=== PATIENT | female | born 1990 | race Caucasian/White ===

== ENCOUNTER → 2017-05-19 | Outpatient (CLI) | payer OTHER ==
[~2017-05-19] MED LIST: ERGO1CAP30 PO; PROP20TA3 PO
[2017-05-19 10:13] LABS: AUTOMATED NEUTROPHIL # 5.1 TH/MM3 (1.8-7.7); BASOPHIL # 0.1 TH/MM3 (0-0.2); BASOPHIL % 0.9 % (0.0-2.0); EOSINOPHIL # 0.1 TH/MM3 (0-0.4); EOSINOPHIL % 1.6 % (0.0-4.0); HEMATOCRIT 41.5 % (35.0-46.0); HEMO FLAGS DIFF FINAL; LYMPH % 35.4 % (9.0-44.0); LYMPHOCYTE # 3.3 TH/MM3 (1.0-4.8); MEAN CELL VOLUME 82.4 FL (80.0-100.0); MEAN CORPUSCULAR HEMOGLOBIN 28.4 PG (27.0-34.0); MEAN CORPUSCULAR HGB CONC 34.4 % (32.0-36.0); MONO % 7.5 % (0.0-8.0); NEUT % 54.6 % (16.0-70.0); PLATELET COUNT 272 TH/MM3 (150-450); RED BLOOD COUNT 5.04 MIL/MM3 (4.00-5.30); RED CELL DISTRIBUTION WIDTH 12.8 % (11.6-17.2); WHITE BLOOD COUNT 9.3 TH/MM3 (4.0-11.0)
[2017-05-19 10:21] LABS: BLOOD, URINE TRACE (NEG); COMMENT (UR) CULT NOT INDICATED; CULTURE IF INDICATED CULT NOT INDICATED; GLUCOSE,URINE NEG (NEG); KETONE, URINE NEG (NEG); MUCUS URINE FEW /lpf (OCC); NITRITE,URINE NEG (NEG); PH, URINE 5.5 (5.0-8.5); SQUAMOUS EPITHELIAL CELL URINE 26 /hpf (0-5); URINE COLOR YELLOW (YELLW/STRAW)
[2017-05-19 10:30] LABS: ANION GAP 5 MEQ/L (5-15); BICARBONATE 25.6 MEQ/L (21.0-32.0); BLOOD UREA NITROGEN 14 MG/DL (7-18); CHLORIDE 109 MEQ/L (98-107); GLUCOSE,FASTING 94 MG/DL (74-99); MAGNESIUM 1.8 MG/DL (1.5-2.5); POTASSIUM 4.1 MEQ/L (3.5-5.1); SODIUM (NA) 140 MEQ/L (136-145)
[2017-05-19 11:07] LABS: ALKALINE PHOSPHATASE 93 U/L (45-117); ALT (GPT) 44 U/L (10-53); AST (GOT) 18 U/L (15-37); FERRITIN 22 NG/ML (8-252); FREE T3 2.48 PG/ML (2.18-3.98); FREE T4 0.74 NG/DL (0.76-1.46); GLOMERULAR FILTRATION RATE 80 ML/MIN (>89); HDL CHOLESTEROL 37.9 MG/DL (40.0-60.0); LDL CHOLESTEROL 88 MG/DL (0-99); TOTAL BILIRUBIN ADULT 0.4 MG/DL (0.2-1.0); TRANSFERRIN IRON PROFILE 302 MG/DL (200-360)
== END ==
LOC: CLAB 09:19
PROVIDERS: ATTEND Nurse Practitioner
DX: R53.83 Other fatigue (principal); R12 Heartburn; E66.01 Morbid (severe) obesity due to excess calories
CPT/HCPCS: 36415; 80053; 80061; 81001; 82306; 82607; 82728; 82746; 83540; 83550; 83735; 83970; 84100; 84439; 84443; 84481; 84590; 85025; 87338

== ENCOUNTER → 2017-06-06 | Outpatient (CLI) | payer OTHER ==
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
== END ==
LOC: HRAD 13:34
PROVIDERS: ATTEND Surgery
DX: R53.83 Other fatigue (principal); R12 Heartburn; E66.01 Morbid (severe) obesity due to excess calories
CPT/HCPCS: 71020

== ENCOUNTER → 2017-06-26 | Outpatient (CLI) | payer OTHER ==
[~2017-06-26] MED LIST changes: +NAPR500 PO; -PROP20TA3 PO; +TOPI1TAB97 PO
== END ==
LOC: CLAB 12:15
PROVIDERS: ATTEND Family Medicine
DX: Z84.0 Family history of diseases of the skin and subcutaneous tissue (principal)
CPT/HCPCS: 36415; 85652; 86038

== ENCOUNTER 2017-07-10 08:45 | Emergency (ER) | payer OTHER ==
[~2017-07-10] VITALS: Ht 165.1 cm; Wt 100.0 kg
[2017-07-10 08:49] VITALS: BP 137/83; PULSE 86; RESP 20; TEMP 98.7; O2SAT 96
[2017-07-10] MEDS ORDERED: IBUPROFEN 600 MG TAB PO ONE (09:45)
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
[2017-07-10 11:20] VITALS: BP 142/72; PULSE 76; RESP 16; O2SAT 97
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
[2017-07-10 13:30] VITALS: BP 141/75
[2017-07-28] MEDS ORDERED: TOPI1TAB97 PO (15:58)
== END 2017-07-10 13:41 | disposition home or self-care (01) ==
LOC: NEPD 08:45
DX: M54.9 Dorsalgia, unspecified (principal); R20.2 Paresthesia of skin; M54.2 Cervicalgia; M54.5 Low back pain
CPT/HCPCS: 72125; 72128; 72131; 84703; 99284; L0150

== ENCOUNTER → 2017-11-06 | Outpatient (CLI) | payer OTHER ==
[~2017-11-06] MED LIST changes: -ERGO1CAP30 PO; +FIORINAL2 PO; -NAPR500 PO; +PARAIUD; -TOPI1TAB97 PO; +VITA500012 PO
== END ==
LOC: CLAB 14:00
PROVIDERS: ATTEND Family Medicine
DX: Z02.0 Encounter for examination for admission to educational institution (principal)
CPT/HCPCS: 36415; 86787

== ENCOUNTER → 2018-03-04 | Outpatient (CLI) | payer OTHER ==
[~2018-03-04] MED LIST changes: +AMOX500C PO; +BIAXIN; -PARAIUD; +PRIL20TA2; -VITA500012 PO
[2018-03-04 14:01] LABS: BASOPHIL # 0.1 TH/MM3 (0-0.2); BASOPHIL % 1.2 % (0.0-2.0); EOSINOPHIL # 0.1 TH/MM3 (0-0.4); EOSINOPHIL % 1.5 % (0.0-4.0); HEMOGLOBIN 14.1 GM/DL (11.6-15.3); LYMPH % 34.3 % (9.0-44.0); MEAN CELL VOLUME 81.7 FL (80.0-100.0); MEAN CORPUSCULAR HEMOGLOBIN 28.1 PG (27.0-34.0); MEAN CORPUSCULAR HGB CONC 34.4 % (32.0-36.0); MEAN PLATELET VOLUME 9.1 FL (7.0-11.0); MONO % 6.6 % (0.0-8.0); MONOCYTE # 0.6 TH/MM3 (0-0.9); NEUT % 56.4 % (16.0-70.0); PLATELET COUNT 309 TH/MM3 (150-450); RED BLOOD COUNT 5.02 MIL/MM3 (4.00-5.30); RED CELL DISTRIBUTION WIDTH 12.6 % (11.6-17.2); WHITE BLOOD COUNT 8.8 TH/MM3 (4.0-11.0)
[2018-03-04 14:08] LABS: PROTHROMBIN TIME - PATIENT 10.2 SEC (9.8-11.6)
[2018-03-04 14:25] LABS: BICARBONATE 26.6 MEQ/L (21.0-32.0); BLOOD UREA NITROGEN 20 MG/DL (7-18); CHLORIDE 106 MEQ/L (98-107); CREATININE 0.88 MG/DL (0.50-1.00); GLOMERULAR FILTRATION RATE 77 ML/MIN (>89); GLUCOSE,FASTING 86 MG/DL (74-99); SODIUM (NA) 141 MEQ/L (136-145)
== END ==
LOC: CLAB 13:10
PROVIDERS: ATTEND Nurse Practitioner
DX: Z01.818 Encounter for other preprocedural examination (principal)
CPT/HCPCS: 36415; 80048; 84702; 85025; 85610

== ENCOUNTER 2018-03-18 05:07 | Inpatient (IN) | payer OTHER ==
[2018-03-18] MEDS ORDERED: METOPROLOL TARTRATE 25 MG TAB PO (05:30)
[2018-03-18] MEDS: CHLORHEXIDINE GLUCONATE 2 % 1 PACK (2 CLOTHS) TOPICAL (05:30)
[2018-03-18] MEDS ORDERED: SODIUM CHLORID 0.9% 500 ML IV (05:30)
[2018-03-18] MEDS ORDERED: INSULIN HUMAN REGULAR 1,000 UNITS/10 ML VIAL SQ (05:30)
[2018-03-18] MEDS: LACTATED RINGER'S 1000 ML IV (06:00)
[2018-03-18] MEDS: POVIDONE IODINE 5% (ANTISEPSIS KIT) 4 APPLICATIONS EACH NARE (06:10)
[2018-03-18] MEDS: SCOPOLAMINE 1.5 MG PATCH T-DERMAL (06:13)
[2018-03-18] MEDS: ONDANSETRON HCL 4 MG/2 ML VIAL IV PUSH ×3 (06:15→22:55)
[2018-03-18] MEDS: APREPITANT 40 MG CAP PO (06:15)
[2018-03-18] MEDS: ACETAMINOPHEN 1000 MG/100 ML 100 ML IV ×3 (06:17→18:31)
[2018-03-18] MEDS: Post-op Orders (for Pharmacy) OTHER (07:45)
[2018-03-18] MEDS ORDERED: ENALAPRILAT 1.25 MG/ML VIAL IV PUSH (07:45)
[2018-03-18] MEDS ORDERED: SODIUM CHLORIDE 0.9% FLUSH 10 ML FLUSH IV FLUSH (07:45)
[2018-03-18] MEDS ORDERED: ACETAMINOPHEN 325MG/HYDROcodone 7.5MG/15ML UDC PO (07:45)
[2018-03-18] MEDS: ceFAZolin 2 GM PREMIX 50 ML IV (08:44)
[2018-03-18] MEDS: BUPIVACAINE/EPINEPHRINE 0.5% PF 30 ML VIAL (08:56)
[2018-03-18] MEDS: PANTOPRAZOLE SOD 40 MG DELAYED RELEASE TAB PO (09:00)
[2018-03-18] MEDS ORDERED: DO NOT ADM ANY ANTICOAGULANT DRUGS (10:26)
[2018-03-18] MEDS: MIDAZOLAM HCL 2 MG/2 ML VIAL (10:32)
[2018-03-18] MEDS: *morphine SULFATE 4 MG/ML PERIprocedure ONLY (10:56)
[2018-03-18] MEDS: D5-1/2 NS + KCL 20 MEQ INJ 1,000 ML IV ×3 (11:00→22:58)
[2018-03-18] MEDS: *morphine SULFATE 8 MG/ML PERIprocedure ONLY (11:18)
[2018-03-18] MEDS: VECURONIUM BROMIDE 20 MG VIAL IV (12:00)
[2018-03-18] MEDS: STERILE WATER FOR INJECTION 20 ML VIAL IV (12:00)
[2018-03-18] MEDS: NEOSTIGMINE 5 MG/5 ML SYRINGE IV PUSH (12:00)
[2018-03-18] MEDS: LACTATED RINGER'S 1000 ML INJ 1,000 ML IV (12:00)
[2018-03-18] MEDS: PHENYLEPH/NS 1000 MCG/10 ML SYR IV (12:00)
[2018-03-18] MEDS: ROCURONIUM INJ 50 MG/5 ML SYRINGE IV PUSH (12:00)
[2018-03-18] MEDS: PROPOFOL 200 MG/20 ML AMP IV (12:00)
[2018-03-18] MEDS: LIDOCAINE HCL 1% PF 5 ML SYRINGE OTHER (12:00)
[2018-03-18] MEDS: GLYCOPYRROLATE 1 MG/5 ML SYRINGE IV PUSH (12:00)
[2018-03-18] MEDS: DEXAMETHASONE SOD PHOS 4 MG/ML VIAL IV (12:00)
[2018-03-18] MEDS: HYDROmorphone HCL PF 0.5 MG/0.5 ML SYRINGE (12:03)
[2018-03-18] MEDS: metroNIDAZOLE 500 MG INJ 100 ML IV ×2 (12:40→18:32)
[2018-03-18] MEDS: ACETAMINOPHEN 325MG/HYDROcodone 7.5MG/15ML UDC PO (14:16)
[2018-03-18] MEDS ORDERED: NALOXONE HCL 0.4 MG/ML AMP IV PUSH (14:30)
[2018-03-18] MEDS: MORPHINE SULFATE 30 MG/30 ML PCA IV ×2 (15:22→22:57)
[2018-03-18] MEDS: ENOXAPARIN SODIUM 40 MG/0.4 ML SYRINGE SQ (15:23)
[2018-03-18] MEDS: SODIUM CHLORIDE 0.9% FLUSH 10 ML FLUSH IV FLUSH (20:24)
[2018-03-18] MEDS: PCA - TOTAL MG MORPHINE DELIVERED PER SHIFT (22:00)
[2018-03-19] MEDS: diphenhydrAMINE HCL 50 MG/ML VIAL IV PUSH (00:05)
[2018-03-19] MEDS: ACETAMINOPHEN 1000 MG/100 ML 100 ML IV ×2 (00:12→06:19)
[2018-03-19] MEDS: metroNIDAZOLE 500 MG INJ 100 ML IV (04:55)
[2018-03-19] MEDS: PCA - TOTAL MG MORPHINE DELIVERED PER SHIFT (06:00)
[2018-03-19] MEDS: SODIUM CHLORIDE 0.9% FLUSH 10 ML FLUSH IV FLUSH ×2 (07:58→19:49)
[2018-03-19] MEDS: PANTOPRAZOLE SOD 40 MG DELAYED RELEASE TAB PO (07:58)
[2018-03-19] MEDS: D5-1/2 NS + KCL 20 MEQ INJ 1,000 ML IV ×2 (07:58→17:00)
[2018-03-19] MEDS: diphenhydrAMINE HCL ELIXIR 12.5 MG/5 ML CUP PO (07:59)
[2018-03-19 08:05] LABS: AUTOMATED NEUTROPHIL # 10.7 TH/MM3 (1.8-7.7); BASOPHIL # 0.1 TH/MM3 (0-0.2); BASOPHIL % 0.5 % (0.0-2.0); EOSINOPHIL % 0.1 % (0.0-4.0); HEMATOCRIT 38.5 % (35.0-46.0); HEMO FLAGS DIFF FINAL; HEMOGLOBIN 12.8 GM/DL (11.6-15.3); LYMPH % 18.4 % (9.0-44.0); LYMPHOCYTE # 2.7 TH/MM3 (1.0-4.8); MEAN CELL VOLUME 84.2 FL (80.0-100.0); MEAN CORPUSCULAR HGB CONC 33.3 % (32.0-36.0); MEAN PLATELET VOLUME 10.3 FL (7.0-11.0); MONO % 8.1 % (0.0-8.0); MONOCYTE # 1.2 TH/MM3 (0-0.9); NEUT % 72.9 % (16.0-70.0); PLATELET COUNT 263 TH/MM3 (150-450); RED BLOOD COUNT 4.57 MIL/MM3 (4.00-5.30); RED CELL DISTRIBUTION WIDTH 13.3 % (11.6-17.2); WHITE BLOOD COUNT 14.7 TH/MM3 (4.0-11.0)
[2018-03-19 08:28] LABS: ANION GAP 8 MEQ/L (5-15); BICARBONATE 23.3 MEQ/L (21.0-32.0); BLOOD UREA NITROGEN 9 MG/DL (7-18); CHLORIDE 109 MEQ/L (98-107); CREATININE 0.88 MG/DL (0.50-1.00); GLOMERULAR FILTRATION RATE 77 ML/MIN (>89); GLUCOSE,RANDOM 95 MG/DL (74-106); MAGNESIUM 2.3 MG/DL (1.5-2.5); POTASSIUM 3.7 MEQ/L (3.5-5.1); SODIUM (NA) 140 MEQ/L (136-145)
[2018-03-19] MEDS: chlorproMAZINE HCL 10 MG TAB PO (10:53)
[2018-03-19] MEDS: OXYBUTYNIN CHLORIDE 5 MG TAB PO (10:53)
[2018-03-19] MEDS: ONDANSETRON HCL 4 MG/2 ML VIAL IV PUSH (14:11)
[2018-03-19] MEDS: ENOXAPARIN SODIUM 40 MG/0.4 ML SYRINGE SQ (14:11)
[2018-03-19] MEDS: ACETAMINOPHEN 325MG/HYDROcodone 7.5MG/15ML UDC PO (14:12)
[2018-03-19] MEDS ORDERED: PROMETHAZINE HCL 25 MG SUPP RECTAL (15:15)
[2018-03-19] MEDS: KETOROLAC TROMETHAMINE 30 MG/ML (IVP) VIAL IV PUSH (15:34)
[2018-03-19] MEDS: PROMETHAZINE INJ 25 MG/ML VIAL IM (16:06)
[2018-03-19] MEDS: HYDROmorphone HCL PF 2 MG/ML VIAL IV PUSH ×3 (16:06→23:10)
[2018-03-19] MEDS: SCOPOLAMINE 1.5 MG PATCH T-DERMAL (16:06)
[2018-03-19 20:45] LABS: BILIRUBIN, URINE NEG (NEG); BLOOD, URINE MOD (NEG); COMMENT (UR) CULTURE INDICATED; CULTURE IF INDICATED CULTURE INDICATED; GLUCOSE,URINE NEG (NEG); KETONE, URINE NEG (NEG); NITRITE,URINE NEG (NEG); SQUAMOUS EPITHELIAL CELL URINE 2 /hpf (0-5); URINE COLOR YELLOW (YELLW/STRAW); URINE LEUKOCYTE ESTERASE SMALL (NEG)
[2018-03-20] MEDS: D5-1/2 NS + KCL 20 MEQ INJ 1,000 ML IV ×3 (01:06→16:08)
[2018-03-20] MEDS: HYDROmorphone HCL PF 2 MG/ML VIAL IV PUSH ×2 (02:29→06:43)
[2018-03-20] MEDS: SODIUM CHLORIDE 0.9% FLUSH 10 ML FLUSH IV FLUSH ×2 (07:37→20:01)
[2018-03-20] MEDS: PANTOPRAZOLE SOD 40 MG DELAYED RELEASE TAB PO (07:44)
[2018-03-20] MEDS ORDERED: oxyCODONE/ACETAMINOPHEN 5 MG/325 MG TAB PO (08:30)
[2018-03-20] MEDS: DOCUSATE SODIUM 50 MG/SENNA 8.6 MG TAB PO ×2 (09:46→20:01)
[2018-03-20] MEDS: oxyCODONE/ACETAMINOPHEN 5 MG/325 MG TAB PO ×4 (09:46→23:11)
[2018-03-20] MEDS: ENOXAPARIN SODIUM 40 MG/0.4 ML SYRINGE SQ (13:59)
[2018-03-20] MEDS: HYOSCYAMINE 0.125 MG TAB PO (16:05)
[2018-03-20] MEDS: NITROFURANTOIN MONOHYD MACROCR 100 MG CAP PO (16:05)
[2018-03-20] MEDS: SUCRALFATE 1 GM/10 ML CUP PO ×2 (16:05→23:11)
[2018-03-21] MEDS: SUCRALFATE 1 GM/10 ML CUP PO (05:06)
[2018-03-21] MEDS: D5-1/2 NS + KCL 20 MEQ INJ 1,000 ML IV (05:07)
[2018-03-21] MEDS: oxyCODONE/ACETAMINOPHEN 5 MG/325 MG TAB PO (05:09)
[2018-03-21] MEDS: SODIUM CHLORIDE 0.9% FLUSH 10 ML FLUSH IV FLUSH (07:16)
[2018-03-21] MEDS: NITROFURANTOIN MONOHYD MACROCR 100 MG CAP PO (08:15)
[2018-03-21] MEDS: DOCUSATE SODIUM 50 MG/SENNA 8.6 MG TAB PO (08:16)
[2018-03-21] MEDS: HYOSCYAMINE 0.125 MG TAB PO (08:16)
== END 2018-03-21 09:44 | disposition home or self-care (01) | DRG 621 ==
LOC: HSDI 05:07 → N07A 14:30
PROC: 0DB64Z3 Excision of Stomach, Percutaneous Endoscopic Approach, Vertical (ICD-10-PCS; principal; 2018-03-18 08:22)
DX: E66.01 Morbid (severe) obesity due to excess calories (principal); E78.5 Hyperlipidemia, unspecified; K21.9 Gastro-esophageal reflux disease without esophagitis; Z68.42 Body mass index [BMI] 45.0-49.9, adult; G47.33 Obstructive sleep apnea (adult) (pediatric)
CPT/HCPCS: 80048; 81001; 83735; 85025; 87086; 94150

== ENCOUNTER → 2018-03-25 | Outpatient (CLI) | DX: R19.7 Diarrhea, unspecified (principal) ==

== ENCOUNTER → 2018-05-04 | Outpatient (CLI) | payer OTHER ==
[~2018-05-04] MED LIST changes: -AMOX500C PO; -BIAXIN; +MACR100C2 PO; -PRIL20TA2
== END ==
LOC: CLAB 11:08
DX: F90.0 Attention-deficit hyperactivity disorder, predominantly inattentive type (principal)
CPT/HCPCS: 36415; 80307; 84702